=== PATIENT | female | born 1995 | race Caucasian/White ===

== ENCOUNTER 2021-06-07 09:17 | Outpatient (RCR) | payer OTHER, SELFPAY ==
[2021-05-03 12:05] VITALS: BP 128/68; PULSE 94
--- NOTE | 2021-05-03 12:59 | PC.NURSE ---
1245- BP 01/30
[2021-05-06 12:30] VITALS: BP 127/62
[2021-05-10 11:02] VITALS: BP 123/69; PULSE 96
--- NOTE | 2021-05-10 11:26 | PC.NURSE ---
BPP 01/30
[2021-05-11 20:06] VITALS: BP 126/70; PULSE 91
[2021-05-13 11:33] VITALS: BP 133/72; PULSE 99
[2021-05-17 11:07] VITALS: BP 133/76; PULSE 99
[2021-05-20 10:36] VITALS: BP 129/73; PULSE 109
[2021-05-24 11:07] VITALS: BP 129/63; PULSE 102
[2021-05-27 12:53] VITALS: BP 129/74; PULSE 102
[2021-05-31 11:23] VITALS: BP 132/66; PULSE 96
[2021-06-03 11:08] VITALS: BP 136/74; PULSE 92
[2021-06-04 20:47] VITALS: BP 134/73; PULSE 92
--- NOTE | ~2021-06-07 | US_ITS ---
EXAMINATION: US OB BPP wo non-stress DATE: 05/03/2021 12:44 INDICATION: Gestational diabetes during third trimester TECHNIQUE: Real-time pelvic ultrasound was performed. The interpreting radiologist was not present fo r the study. COMPARISON: None. FINDINGS: There is a single living fetus in vertex presentation. The placenta is anterior. heart rate is 135 beats per minute (bpm). Biophysical profile performed by the technologist: breathing (30 sec sustained breathing in 30 minutes): 2 out of 2 movement (3 gross body movements in 30 minutes): 2 out of 2 tone (one episode of kyygyxw-hmnfdatgv-afyureq limb movement): 2 out of 2 Amniotic fluid pocket (2 cm): 2 out of 2 Total score: 8 out of 8 IMPRESSION: 1. Single living fetus in vertex presentation. 2. Biophysical profile 8 out of 8. Reviewed, dictated and finalized at location B. OR SOLUTIONS ENGINEER
--- NOTE | ~2021-06-07 | US_ITS ---
EXAMINATION: US OB BPP wo non-stress DATE: 06/07/2021 10:55 INDICATION: Gestational diabetes. TECHNIQUE: Real-time pelvic ultrasound was performed. COMPARISON: Ultrasound 05/31/2021 FINDINGS: There is a single living fetus in vertex presentation. The placenta is anterior and fundal. he art rate is 159 beats per minute (bpm). Biophysical profile performed by the technologist: breathing (30 sec sustained breathing in 30 minutes): 2 out of 2 movement (3 gross body movements in 30 minutes): 2 out of 2 tone (one episode of xafrjzh-ojrqhbxhl-pykdgmh limb movement): 2 out of 2 Amniotic fluid pocket (2 cm): 2 out of 2 Total score: 8 out of 8 IMPRESSION: 1. Single living fetus in vertex presentation. 2. Biophysical profile 8 out of 8. Reviewed, dictated and finalized at location A. T CREASER
--- NOTE | ~2021-06-07 | US_ITS ---
EXAMINATION: US OB BPP wo non-stress DATE: 05/24/2021 11:08 OR ASSISTANT INDICATION: Gestational diabetes TECHNIQUE: Real-time transabdominal obstetric ultrasound. FINDINGS: 05/17/2021 There is a single living fetus in vertex presentation. The placenta is anterior without placenta pre via. cardiac activity and movement is noted with a heart rate of 148 beats per minute. Biophysical profile: breathin of 2 movement: 2 of 2 tone: 2 of 2 Amniotic flud pocket: 2 of 2 Total score: 8 of 8 IMPRESSION: 1. Single living intrauterine in vertex presentation. 2: Total biophysical profile score of 8/8. Reviewed, dictated and finalized at location B. ASSISTANT
--- NOTE | ~2021-06-07 | US_ITS ---
US OB BPP wo non-stress DATE: 05/13/2021 11:31 INDICATION: Gestational diabetes mellitus TECHNIQUE: Real-time imaging and Doppler analysis COMPARISON: None FINDINGS: Live lopez intrauterine gestation, fetus in longitudinal lie, vertex presentation, with heart rate of 146 bpm. Anterior placenta. Normal amount of amniotic fluid by subjective assessment. A 4 x 5.3 cm amniotic fl uid pocket is demonstrated. BIOPHYSICAL PROFILE reported by software validation technician: breathin out of 2 movement: 2 out of 2 tone: 2 out of 2 Amniotic fluid pocket: 2 out of 2 Total score: 8 out of 8 IMPRESSION: Normal biophysical profile score of 8 out of 8 Reviewed, dictated and finalized at Location A. Reviewed, dictated and finalized at location A. ARY ASSISTANT
--- NOTE | ~2021-06-07 | US_ITS ---
EXAMINATION: US OB BPP wo non-stress DATE: 05/31/2021 11:21 INDICATION: Maternal gestational diabetes during third trimester of . TECHNIQUE: Real-time pelvic ultrasound was performed. The interpreting radiologist was not present fo r the study. COMPARISON: 05/24/2021 FINDINGS: There is a single living fetus in vertex presentation. The placenta is anterior. heart rate is 165 beats per minute (bpm). Amniotic fluid volume is subjectively normal. Biophysical profile performed by the technologist: breathing (30 sec sustained breathing in 30 minutes): 2 out of 2 movement (3 gross body movements in 30 minutes): 2 out of 2 tone (one episode of nbjnzvn-etjfwkirh-unuyupq limb movement): 2 out of 2 Amniotic fluid pocket (2 cm): 2 out of 2 Total score: 8 out of 8 IMPRESSION: 1. Single living fetus in vertex presentation with heart rate of 165 bpm. 2. Biophysical profile 8 out of 8. Reviewed, dictated and finalized at location B. ICAL SERVICES TECH
--- NOTE | ~2021-06-07 | US_ITS ---
EXAMINATION: US OB BPP wo non-stress DATE: 05/10/2021 11:21 INDICATION: Gestational diabetes. Third trimester. TECHNIQUE: Real-time pelvic ultrasound was performed. COMPARISON: Ultrasound 05/03/2021 FINDINGS: There is a single living fetus in vertex presentation. The placenta is anterior. heart rate is 153 beats per minute (bpm). Biophysical profile performed by the technologist: breathing (30 sec sustained breathing in 30 minutes): 2 out of 2 movement (3 gross body movements in 30 minutes): 2 out of 2 tone (one episode of cjpgjgh-vkmcqjthj-djkyzop limb movement): 2 out of 2 Amniotic fluid pocket (2 cm): 2 out of 2 Total score: 8 out of 8 IMPRESSION: 1. Single living fetus in vertex presentation. 2. Biophysical profile 8 out of 8. Reviewed, dictated and finalized at location A. LING SUPERVISOR
--- NOTE | ~2021-06-07 | US_ITS ---
EXAMINATION: US OB BPP wo non-stress EXAM DATE: 05/17/2021 11:29 INDICATION: Gestational diabetes. 3rd trimester. TECHNIQUE: Pelvic obstetrical transabdominal sonogram was performed by a technologist. There are mu ltiple grayscale and Doppler images available for interpretation. Comparison is made to prior examina tion from 05/13/2021. FINDINGS: There is a single fetus identified in vertex presentation with a heart rate of 157 beats pe r minute. The placenta is located in the anterior position. There is no sonographic evidence of retr oplacental hemorrhage identified. BIOPHYSICAL PROFILE (performed by the technologist) breathing (30 sec sustained breathing in 30 minutes): 2 out of 2 movement (3 gross body movements in 30 minutes): 2 out of 2 tone (one episode of zkkiimg-cwbdnxggb-twticsc limb movement): 2 out of 2 Amniotic fluid pocket (2 cm): 2 out of 2 Total score: 8 out of 8 IMPRESSION: 1. Single fetus with heart rate of 157 bpm. 2. Normal biophysical profile score of 8 out of 8. Reviewed, dictated and finalized at location A. WAY PATROL OFFICER
[2021-06-07 11:03] VITALS: BP 127/77; PULSE 92
== END 2021-06-23 13:49 | disposition home or self-care (01) ==
LOC: ANHOBOP 09:17
PROVIDERS: PCP Internal Medicine; Visit Provider Obstetrics & Gynecology
DX: O24.419 Gestational diabetes mellitus in pregnancy, unspecified control (principal); Z3A.33 33 weeks gestation of pregnancy; Z3A.34 34 weeks gestation of pregnancy; Z3A.35 35 weeks gestation of pregnancy; Z3A.36 36 weeks gestation of pregnancy; O36.8130 Decreased fetal movements, third trimester, not applicable or unspecified; Z3A.37 37 weeks gestation of pregnancy; Z3A.38 38 weeks gestation of pregnancy
CPT/HCPCS: 59025; 76819

== ENCOUNTER 2021-06-09 23:19 | Inpatient (IN) | payer OTHER, SELFPAY ==
--- NOTE | 2021-06-09 23:19 | LDADM ---
This patient, Татьяна Espinoza, was admitted to Labor/Delivery/Recovery 104 on 06/09/21 at 23:19. Plans for labor, pain management and were discussed with patient. Patient/family oriented to hospital policies and general routines including ID bracelet, bed and alarms, visiting hours, pain management, procedures, bathroom and other care routines, personal items, smoking policy, room service/diet and guest tray routines, security routines, and visiting hours. Patient/Family are encouraged to report perceived risks to care and to ask questions if they do not understand what they are told or what they should do. See OBIX for further documentation.
[2021-06-10] VITALS (218 sets, daily range): BP systolic 110–172; BP diastolic 51–99; PULSE 70–138; RESP 13–20; TEMP 36.8–38.4; O2SAT 96–100; BMI 40.0
[2021-06-10 00:36] LABS: Glucose Point of Care 114 mg/dl (65-105)
[2021-06-10 01:40] LABS: Basophils Percent Auto 0.3 % (0.2-1.2); Eosinophils Absolute Auto 0.1 K/mm3 (0-0.3); Eosinophils Percent Auto 0.7 % (0-4.4); Hematocrit 36.7 % (37.0-47.0); Hemoglobin 12.2 g/dL (12.0-15.0); Immature Granulocyte Absolute 0.07 K/mm3 (0.00-0.031); Immature Granulocyte Percent A 0.8 % (0-0.5); Lymphocytes Percent Auto 16.8 % (18.3-44.2); Mean Corpuscular HGB Conc 33.2 g/dl (32-36); Mean Corpuscular Hemoglobin 30.7 pg (26-34); Mean Corpuscular Volume 92.4 fl (80-100); Mean Platelet Volume 9.6 fl (7.4-10.4); Monocytes Absolute Auto 0.5 K/mm3 (0.1-0.6); Monocytes Percent Auto 5.8 % (2.6-8.5); Neutrophils Absolute Auto 6.7 K/mm3 (1.3-6.7); Neutrophils Percent Auto 75.6 % (45.5-73.1); Platelet Count Result 198 k/mm3 (150-375); Red Blood Count 3.97 M/mm3 (4.2-5.4); Red Cell Distribution Width 15.1 % (11.5-14.5); White Blood Count 8.9 K/mm3 (4.5-10.0)
[2021-06-10] MEDS: LACTATED RINGERS 1,000 ML 125 ML IV CONT ×4 (03:30→16:38)
[2021-06-10] MEDS: OXYTOCIN 30 UNITS/NS 500 ML 30 UNITS/500 ML BAG IV CONT (03:31)
[2021-06-10 03:44] LABS: Glucose Point of Care 105 mg/dl (65-105)
--- NOTE | 2021-06-10 06:04 | WPDANESEPP ---
Anes - Eval Pre Procedure Procedure: labor pain management Date/Time: 06/10/21 06:04 Surgeon: Melinda Preop Diagnosis: Pain during labor Pre Op Diagnosis: Leaking Patient Data Age: 26 Gender: F Height: 1.52 m Weight: 93 kg Last Vital Signs Temp 98.9 F 06/10/21 03:30 Pulse 100 06/10/21 03:42 BP 136/67 06/10/21 03:42 Allergies Allergy/AdvReac Type Severity Reaction Status Date / Time adhesive AdvReac Unknown Unknown Verified 05/20/21 10:51 Home Medications Medication Instructions Recorded Confirmed Type PNV cmb#95-ferrous fumarate-FA 1 tablet PO DAILY 05/20/21 06/10/21 History [] ferrous sulfate 325 mg PO DAILY 05/20/21 06/10/21 History glyburide 5 mg PO DAILY 05/20/21 06/10/21 History Laboratory Tests 06/10/21 06/10/21 06/10/21 00:29 00:32 00:32 WBC 8.9 K/mm3 K/mm3 (4.5-10.0) RBC 3.97 M/mm3 L M/mm3 (4.2-5.4) Hgb 12.2 g/dL g/dL (12.0-15.0) Hct 36.7 % L % (37.0-47.0) MCV 92.4 fl fl (80-100) MCH 30.7 pg pg (26-34) MCHC 33.2 g/dl g/dl (32-36) RDW 15.1 % H % (11.5-14.5) Plt Count 198 k/mm3 k/mm3 (150-375) MPV 9.6 fl fl (7.4-10.4) Immature Gran % (Auto) 0.8 % H % (0-0.5) Neut % (Auto) 75.6 % H % (45.5-73.1) Lymph % (Auto) 16.8 % L % (18.3-44.2) [place] % (Auto) 5.8 % % (2.6-8.5) Eos % (Auto) 0.7 % % (0-4.4) Baso % (Auto) 0.3 % % (0.2-1.2) Lymph # (Auto) 1.50 K/mm3 K/mm3 (0.9-3.2) [place] # (Auto) 0.5 K/mm3 K/mm3 (0.1-0.6) Eos # (Auto) 0.1 K/mm3 K/mm3 (0-0.3) Baso # (Auto) 0.0 K/mm3 K/mm3 (0.0-0.1) Abs Immat Gran (auto) 0.07 K/mm3 H K/mm3 (0.00-0.031) Absolute Neuts (auto) 6.7 K/mm3 K/mm3 (1.3-6.7) Absolute Nucleated RBC 0.0 K/mm3 K/mm3 (0.0-0.012) Nucleated RBC % 0.0 % % (0.0-0.2) POC Capillary Glucose 114 mg/dl H mg/dl (65-105) RPR Pending Blood Type Antibody Screen 06/10/21 06/10/21 00:32 03:40 WBC RBC Hgb Hct MCV MCH MCHC RDW Plt Count MPV Immature Gran % (Auto) Neut % (Auto) Lymph % (Auto) [place] % (Auto) Eos % (Auto) Baso % (Auto) Lymph # (Auto) [place] # (Auto) Eos # (Auto) Baso # (Auto) Abs Immat Gran (auto) Absolute Neuts (auto) Absolute Nucleated RBC Nucleated RBC % POC Capillary Glucose 105 mg/dl mg/dl (65-105) RPR Blood Type A Positive Antibody Screen Negative : gestational age (edc 06/21) Patient hx anesthesia problems: none Family hx anesthesia problems: none Results Review: All pre-operative results and documents have been reviewed as part of the pre-operative evaluation. [facility] Past Medical History Medical History (Updated 06/10/21 @ 06:04 by Karen Scales CRNA) Morbid obesity with BMI of 40.0-44.9, adult Family History Family History Father Marcos's disease Heart disease Mother Diabetes mellitus Social History Social History Smoking status: Never smoker Substance use: never Spiritual care concerns: No Exam Day of Procedure 06/10/21 06:04 Patient weight: morbidly obese Neurological: alert and oriented
[2021-06-10 07:35] LABS: Glucose Point of Care 123 mg/dl (65-105)
[2021-06-10 08:26] LABS: Alanine Aminotransferase 23 U/L (4-35); Albumin Level 3.2 g/dL (3.5-5.1); Alkaline Phosphatase 108 U/L (38-126); Anion Gap 9 mmol/L (8-16); Aspartate Amino Transferase 25 U/L (14-36); Bilirubin,Total 0.2 mg/dL (0.2-1.3); Blood Urea Nitrogen 15 mg/dL (7-17); Calcium 8.6 mg/dL (8.4-10.2); Carbon Dioxide 17 mmol/L (22-30); Chloride 111 mmol/L (98-107); Estimated CRCL calculation 105 ml/min; Estimated Glomerular Filt Rate > 60; Glucose 112 mg/dL (65-110); Potassium 3.7 mmol/L (3.4-5.0); Sodium 137 mmol/L (137-145); Uric Acid 6.4 mg/dL (2.5-7.5)
[2021-06-10 10:37] LABS: Glucose Point of Care 83 mg/dl (65-105)
[2021-06-10 12:46] LABS: Glucose Point of Care 84 mg/dl (65-105)
[2021-06-10 13:14] LABS: Rapid Plasma Reagin Non-Reactive (NonReactive)
[2021-06-10 14:22] LABS: Glucose Point of Care 70 mg/dl (65-105)
[2021-06-10] MEDS: AMPICILLIN 2 GM/NS 100 ML 2 GM/100 ML BAG IVPB (14:44)
[2021-06-10 16:24] LABS: Glucose Point of Care 79 mg/dl (65-105)
--- NOTE | 2021-06-10 16:42 | PM.IMHP ---
H&P: HPI History of Present Illness Date/Time: 06/10/21 16:42 18-year-old 1 female presents 39 weeks with ruptured membranes and early labor. She has been laboring throughout the day with minimal change house attendant the last 3-4 hours going from 9cm to a REM with great amount of CABG caput as well. She has had intermittent decelerations but overall the strip has been reassuring. With her minimal change house attendant this period of time and discussed the patient and her and they understand and agree to proceed with primary delivery. Chief Complaint: Review of Systems Review of Systems: All systems reviewed & are unremarkable except as noted in HPI and below PMFSH Past Medical History Medical History Morbid obesity with BMI of 40.0-44.9, adult Family History Family History Father Marcos's disease Heart disease Mother Diabetes mellitus Social History Social History Smoking status: Never smoker Substance use: never Spiritual care concerns: No Meds Home Medications and Allergies Home Medications Medication Instructions Recorded Confirmed Type PNV cmb#95-ferrous fumarate-FA 1 tablet PO DAILY 05/20/21 06/10/21 History [] ferrous sulfate 325 mg PO DAILY 05/20/21 06/10/21 History glyburide 5 mg PO DAILY 05/20/21 06/10/21 History Allergies Allergy/AdvReac Type Severity Reaction Status Date / Time adhesive AdvReac Unknown Unknown Verified 05/20/21 10:51 Vital Signs Vital Signs - 24 hr 06/10/21 00:48 06/10/21 03:30 06/10/21 03:42 Temperature 37.2 C Pulse Rate 95 100 Respiratory Rate Blood Pressure 138/80 136/67 Pulse Oximetry 06/10/21 06:27 06/10/21 06:30 06/10/21 06:45 Temperature 37.1 C Pulse Rate 93 93 88 Respiratory Rate 18 Blood Pressure 153/88 H 151/76 H 145/73 H Pulse Oximetry 06/10/21 06:50 06/10/21 06:51 06/10/21 06:52 Temperature Pulse Rate 114 H 104 H Respiratory Rate Blood Pressure 150/85 H 150/89 H Pulse Oximetry 98 06/10/21 06:53 06/10/21 06:54 06/10/21 06:56 Temperature Pulse Rate 109 H 106 H 99 Respiratory Rate Blood Pressure 149/86 H 133/81 151/69 H Pulse Oximetry 06/10/21 06:57 06/10/21 06:58 06/10/21 07:00 Temperature Pulse Rate 98 99 Respiratory Rate Blood Pressure 151/73 H 145/71 H Pulse Oximetry 98 06/10/21 07:02 06/10/21 07:06 06/10/21 07:07 Temperature Pulse Rate 96 Respiratory Rate Blood Pressure 144/62 H Pulse Oximetry 97 98 06/10/21 07:11 06/10/21 07:12 06/10/21 07:16 Temperature Pulse Rate 97 101 H Respiratory Rate Blood Pressure 156/70 H 163/76 H Pulse Oximetry 97 06/10/21 07:17 06/10/21 07:22 06/10/21 07:27 Temperature Pulse Rate Respiratory Rate Blood Pressure Pulse Oximetry 98 99 99 06/10/21 07:31 06/10/21 07:32 06/10/21 07:37 Temperature Pulse Rate 99 Respiratory Rate Blood Pressure 165/78 H Pulse Oximetry 98 99 06/10/21 07:42 06/10/21 07:46 06/10/21 07:47 Temperature Pulse Rate 94 Respiratory Rate Blood Pressure 172/59 H Pulse Oximetry 99 99 06/10/21 07:52 06/10/21 07:57 06/10/21 08:01 Temperature Pulse Rate 92 Respiratory Rate Blood Pressure 138/72 Pulse Oximetry 100 99 06/10/21 08:02 06/10/21 08:07 06/10/21 08:12 Temperature 36.8 C Pulse Rate Respiratory Rate 18 Blood Pressure Pulse Oximetry 99 98 99 06/10/21 08:16 06/10/21 08:17 06/10/21 08:22 Temperature Pulse Rate 90 Respiratory Rate Blood Pressure 130/73 Pulse Oximetry 99 98 06/10/21 08:27 06/10/21 08:30 06/10/21 08:32 Temperature Pulse Rate 91 Respiratory Rate Blood Pressure 147/82 H Pulse Oximetry 99 99 06/10/21 08:37 06/10/21 08:42 06/10/21 08:46 T
--- NOTE | 2021-06-10 16:46 | WPDHPUPDATE1 ---
History and Physical Update Update Date/Time: 06/10/21 16:46 History and Physical has been reviewed, including an updated exam of the patient. There are NO changes in the patient's condition. Risks, benefits, and alternatives have been discussed and questions answered. Patient agrees to proceed with procedure.
[2021-06-10] MEDS: ceFAZolin 2 GM/D5W 50 ML 2 GM/50 ML BAG IVPB (16:51)
[2021-06-10] MEDS: KETOROLAC 30 MG/ML VIAL (*BKC) IV PUSH (17:42)
--- NOTE | 2021-06-10 17:47 | PM.OBPRVD ---
OB - Delivery Note Procedure Procedure: Procedures Operation Date: 06/10/21 16:45 <No data on this case meets the specified criteria> events: Gestational Diabetes and Prolonged Rupture of Membrane Intrapartal events: Failure to Progress in Labor Route of delivery: Specimen: Yes Quantitative Blood Loss (ml): 865 Anesthesia type: Epidural Disposition: floor Narrative: Patient prepped and draped in usual manner for this procedure. Pfannenstiel incision was made which was then carried down to the fascia which was extended bilaterally the length of the skin incision. Superiorly and inferiorly dissected away from the rectus muscles and then the peritoneum was readily entered and bladder flap developed. Uterus was scored in a low transverse manner and vertex was delivered without difficulty the rest of baby was delivered without difficulty as well. Cord clamped cut passed off to the pediatric team in attendance and the placenta was removed manually uterus was exteriorized cleared of membranes and clots and closed using 0 Monocryl running interlocking manner with good approximation hemostasis noted 1 area of oozing was readily rendered hemostatic with a uyhhvo-lv-oalfk suture. Uterus returned the abdomen inspected again all subfascial tissue was noted be hemostatic and the uterine incision was hemostatic and intact. Fascia was approximated using 0 Vicryl from the left angle to the midline in the right angle to midline with showed good approximation. Subcutaneous tissue was approximated with 0 plain suture and skin were bartolo were used to approach approximate the skin edges. At this point the procedure was considered terminated and the immediate postoperative condition of mother and baby were both excellent. Baby Weeks of gestation at delivery: 39 gender: Female Weight (pounds): 9 Weight (ounces): 5 score one minute: 8 score five minutes: 9
--- NOTE | 2021-06-10 17:55 | SUR.PHASEI ---
450 ml remains in IV of 1000 LR with 20 units Pitocin.
--- NOTE | 2021-06-10 19:25 | SUR.PHASEI ---
Ice pack applied to swollen labia
--- NOTE | 2021-06-10 19:55 | SUR.PHASEI ---
Dr. Lawrence returned page and informed of fever of 101.2,. Orders received.
--- NOTE | 2021-06-10 20:05 | SUR.PHASEI ---
Pt, infant, and father of baby taken to room 110 so family members can view prior to transfer to mom/baby unit.
[2021-06-10] MEDS: OXYTOCIN 30 UNITS/NS 500 ML 30 UNITS/500 ML BAG 125 UNITS IV CONT (20:16)
[2021-06-10] MEDS: CLINDAMYCIN 900 MG/D5W 50 ML 900 MG/50 ML PIGGYBACK 50 MG IVPB (20:46)
[2021-06-10 20:47] LABS: Glucose Point of Care 86 mg/dl (65-105)
[2021-06-10 20:48] LABS: Hematocrit 32.1 % (37.0-47.0); Hemoglobin 10.6 g/dL (12.0-15.0); Mean Corpuscular Hemoglobin 30.5 pg (26-34); Mean Corpuscular Volume 92.2 fl (80-100); Mean Platelet Volume 9.3 fl (7.4-10.4); Platelet Count Result 185 k/mm3 (150-375); Red Blood Count 3.48 M/mm3 (4.2-5.4); Red Cell Distribution Width 15.1 % (11.5-14.5); White Blood Count 15.3 K/mm3 (4.5-10.0)
[2021-06-11] MEDS: DEXTROSE 5%/0.45% SOD CHL 1,000 ML 125 ML IV CONT (02:35)
[2021-06-11 03:15] VITALS: BP 114/74; PULSE 100; RESP 16; TEMP 36.9
[2021-06-11 03:15] LABS: Basophils Absolute Auto 0.1 K/mm3 (0.0-0.1); Basophils Percent Auto 0.4 % (0.2-1.2); Eosinophils Percent Auto 0.3 % (0-4.4); Hematocrit 33.3 % (37.0-47.0); Hemoglobin 10.7 g/dL (12.0-15.0); Immature Granulocyte Absolute 0.06 K/mm3 (0.00-0.031); Immature Granulocyte Percent A 0.5 % (0-0.5); Lymphocytes Absolute Auto 1.19 K/mm3 (0.9-3.2); Lymphocytes Percent Auto 9.7 % (18.3-44.2); Mean Corpuscular HGB Conc 32.1 g/dl (32-36); Mean Corpuscular Hemoglobin 30.7 pg (26-34); Mean Corpuscular Volume 95.4 fl (80-100); Mean Platelet Volume 9.5 fl (7.4-10.4); Monocytes Absolute Auto 0.6 K/mm3 (0.1-0.6); Monocytes Percent Auto 4.8 % (2.6-8.5); Neutrophils Absolute Auto 10.4 K/mm3 (1.3-6.7); Neutrophils Percent Auto 84.3 % (45.5-73.1); Platelet Count Result 167 k/mm3 (150-375); Red Blood Count 3.49 M/mm3 (4.2-5.4); Red Cell Distribution Width 15.5 % (11.5-14.5); White Blood Count 12.3 K/mm3 (4.5-10.0)
[2021-06-11] MEDS: CLINDAMYCIN 900 MG/D5W 50 ML 900 MG/50 ML PIGGYBACK 50 MG IVPB ×3 (04:56→19:59)
[2021-06-11 08:46] VITALS: BP 117/68; PULSE 106; RESP 16; TEMP 36.1; O2SAT 98
[2021-06-11] MEDS: DOCUSATE SODIUM 100 MG CAPSULE PO ×2 (08:46→17:14)
--- NOTE | 2021-06-11 09:14 | PM.OBPNVD ---
OB - PN: Subj Subjective Date/time seen: 06/11/21 09:14 Diet/ambulation without difficulty. Pain well controlled. OB - PN: Obj Data Labs CBC & Chem 7: 06/11/21 03:10 06/10/21 08:00 Labs: Laboratory Results - last 24 hr 06/10/21 06/10/21 06/10/21 00:32 10:34 12:43 WBC RBC Hgb Hct MCV MCH MCHC RDW Plt Count MPV Immature Gran % (Auto) Neut % (Auto) Lymph % (Auto) [place] % (Auto) Eos % (Auto) Baso % (Auto) Lymph # (Auto) [place] # (Auto) Eos # (Auto) Baso # (Auto) Abs Immat Gran (auto) Absolute Neuts (auto) Absolute Nucleated RBC Nucleated RBC % POC Capillary Glucose 83 84 RPR Non-reactive 06/10/21 06/10/21 06/10/21 14:20 16:16 20:43 WBC RBC Hgb Hct MCV MCH MCHC RDW Plt Count MPV Immature Gran % (Auto) Neut % (Auto) Lymph % (Auto) [place] % (Auto) Eos % (Auto) Baso % (Auto) Lymph # (Auto) [place] # (Auto) Eos # (Auto) Baso # (Auto) Abs Immat Gran (auto) Absolute Neuts (auto) Absolute Nucleated RBC Nucleated RBC % POC Capillary Glucose 70 79 86 RPR 06/10/21 06/11/21 20:44 03:10 WBC 15.3 H 12.3 H RBC 3.48 L 3.49 L Hgb 10.6 L 10.7 L Hct 32.1 L 33.3 L MCV 92.2 95.4 MCH 30.5 30.7 MCHC 33.0 32.1 RDW 15.1 H 15.5 H Plt Count 185 167 MPV 9.3 9.5 Immature Gran % (Auto) 0.5 Neut % (Auto) 84.3 H Lymph % (Auto) 9.7 L [place] % (Auto) 4.8 Eos % (Auto) 0.3 Baso % (Auto) 0.4 Lymph # (Auto) 1.19 [place] # (Auto) 0.6 Eos # (Auto) 0.0 Baso # (Auto) 0.1 Abs Immat Gran (auto) 0.06 H Absolute Neuts (auto) 10.4 H Absolute Nucleated RBC 0.0 Nucleated RBC % 0.0 POC Capillary Glucose RPR OB - PN A/P Assessment and Plan (1) Arrest of dilation, delivered, current hospitalization: Code(s): O62.1 - Secondary uterine inertia Status: Acute Assessment and Plan: 1. Clinically doing well. Will continue ab until am and recheck CBC. Otherwise routine pp/po care. Time Spent With Patient Time: Total time spent is greater than 50% in coordination of care (as documented) at patient's floor/unit and/or counseling patient: Exam Const: General: cooperative and healthy appearing GI: GI Palp: Yes abdominal tenderness Auscultation: normal bowel sounds
--- NOTE | 2021-06-11 09:39 | WPDANLDPN2 ---
Anes-Prog Note L&D Date/Time: 06/11/21 09:39 Comfortable throughout: labor and section Neuraxial method: epidural Epidural/Spinal procedure site: clean & non-tender Neuro status: Neuro function grossly intact. Cardiovascular status: normal Respiratory status: normal Airway patency: baseline Mental status: baseline Post-Op hydration status: normal Vital Signs: Last Vital Signs Temp 97.0 F L 06/11/21 08:46 Pulse 106 H 06/11/21 08:46 Resp 16 06/11/21 08:46 BP 117/68 06/11/21 08:46 Pulse Ox 98 06/11/21 08:46 Pain score (VAS): 2 I/O: Intake & Output 06/10/21 06/11/21 06/11/21 23:59 07:59 15:59 Intake Total 7795.949 9989.375 1050 Output Total 405 600 650 Balance 917.375 452.375 400 Post-procedural complaints: none Patient feedback: Patient satisfied with anesthetic care.
--- NOTE | 2021-06-11 09:40 | WPDANLDNPN2 ---
Anes-Prog Note L&D-Neuraxial Date/Time: 06/11/21 09:40 Neuraxial medications: epidural PF morphine Opiod-related complaints: none Patient feedback: Patient satisfied with post-operative pain management.
[2021-06-11] MEDS: IBUPROFEN SUSPENSION 200 MG/10 ML UDC 600 MG PO ×2 (10:45→17:15)
[2021-06-11 12:10] VITALS: BP 113/67; PULSE 105; RESP 16; TEMP 36.1; O2SAT 99
[2021-06-11 16:00] VITALS: BP 136/81; PULSE 87; RESP 18; TEMP 36.4; O2SAT 98
[2021-06-11 18:40] VITALS: BP 125/77; PULSE 113; RESP 16; TEMP 36.6
[2021-06-11 21:22] LABS: Gentamicin Trough 1.5 ug/mL (<1.0)
[2021-06-12 00:50] LABS: Gentamicin Peak 3.4 ug/mL (5.0-12.0)
[2021-06-12] MEDS: CLINDAMYCIN 900 MG/D5W 50 ML 900 MG/50 ML PIGGYBACK 50 MG IVPB (04:06)
[2021-06-12] MEDS: IBUPROFEN SUSPENSION 200 MG/10 ML UDC 600 MG PO ×3 (04:20→20:57)
[2021-06-12 04:55] LABS: Hematocrit 29.9 % (37.0-47.0); Hemoglobin 9.7 g/dL (12.0-15.0); Mean Corpuscular HGB Conc 32.4 g/dl (32-36); Mean Corpuscular Hemoglobin 30.2 pg (26-34); Mean Corpuscular Volume 93.1 fl (80-100); Mean Platelet Volume 9.4 fl (7.4-10.4); Platelet Count Result 175 k/mm3 (150-375); Red Blood Count 3.21 M/mm3 (4.2-5.4); Red Cell Distribution Width 15.3 % (11.5-14.5); White Blood Count 10.1 K/mm3 (4.5-10.0)
[2021-06-12 08:00] VITALS: BP 145/91; PULSE 107; RESP 16; TEMP 36.8; O2SAT 98
[2021-06-12] MEDS: DOCUSATE SODIUM 100 MG CAPSULE PO (09:31)
[2021-06-12] MEDS: POLYSACCHARIDE IRON COMPLEX 150 MG CAPSULE PO (09:31)
--- NOTE | 2021-06-12 10:02 | PM.OBDSVD ---
DS: Admitting Diagnosis Discharge Date 06/13/2021 Admitting Diagnosis DS: Discharge Diagnosis Discharge Diagnosis (1) Arrest of dilation, delivered, current hospitalization: Code(s): O62.1 - Secondary uterine inertia Status: Acute OB - DS: Summary OB Procedures : None OB Procedures Intrapartum: OB Procedures: : Antibiotics Peripartum Data Procedures: Procedures Operation Date: 06/10/21 16:45 Actual Procedure Side Surgeon p Section Ambrocio Lawrence MD Time Spent with Patient Time attestation: Total time spent providing and/or coordinating discharge services: DS: Data Data Completed and Pending Pending studies at discharge: Pending at discharge 06/10/21 17:18 Surgical [PTH] Routine Labs on day of discharge: Labs from last 24 hours 06/12/21 06/11/21 06/11/21 04:15 23:43 19:55 WBC 10.1 H RBC 3.21 L Hgb 9.7 L Hct 29.9 L MCV 93.1 MCH 30.2 MCHC 32.4 RDW 15.3 H Plt Count 175 MPV 9.4 Gentamicin Peak 3.4 L Gentamicin Trough 1.5 Discharge Plan Discharge Discharging Clinician: Ambrocio Lawrence Patient Disposition: Home, Self-Care Activity: as tolerated Diet: as tolerated Wound Care Instructions: incision open to air Discharge Instructions: office sunday for staple removal Patient Instructions: Antibiotic Form Stand Alone Forms: General Discharge Information Follow-up/Referrals: Ambrocio Lawrence MD [Physician] - 3 Weeks Discharge Medications: New hydrocodone-acetaminophen 7.5-325 mg/15 mL Solution 5 mg PO Q3H PRN (Reason: Moderate Pain (4-6)) 7 Days RF: 0 ibuprofen 100 mg/5 mL Suspension 600 mg PO Q6H PRN (Reason: Cramping) 7 Days RF: 0 Continued ferrous sulfate 325 mg (65 mg iron) Tablet 325 mg PO DAILY RF: 0 PNV cmb#95-ferrous fumarate-FA [] 28 mg iron- 800 mcg Tablet 1 tablet PO DAILY RF: 0 Discontinued glyburide 5 mg Tablet 5 mg PO DAILY RF: 0 Date of admission: 06/09/21 23:19 Primary Care Provider: JeaneJoel Admitting Provider: Ambrocio Lawrence Attending physician on admission: Ambrocio Lawrence Condition: Stable
--- NOTE | 2021-06-12 10:07 | PM.OBDSVD ---
DS: Admitting Diagnosis Discharge Date 06/13/2021 Admitting Diagnosis OB - DS: Summary OB Procedures : None OB Procedures Intrapartum: OB Procedures: : Antibiotics Peripartum Data Procedures: Procedures Operation Date: 06/10/21 16:45 Actual Procedure Side Surgeon p Section Ambrocio Lawrence MD Time Spent with Patient Time attestation: Total time spent providing and/or coordinating discharge services: DS: Data Data Completed and Pending Pending studies at discharge: Pending at discharge 06/10/21 17:18 Surgical [PTH] Routine Labs on day of discharge: Labs from last 24 hours 06/12/21 06/11/21 06/11/21 04:15 23:43 19:55 WBC 10.1 H RBC 3.21 L Hgb 9.7 L Hct 29.9 L MCV 93.1 MCH 30.2 MCHC 32.4 RDW 15.3 H Plt Count 175 MPV 9.4 Gentamicin Peak 3.4 L Gentamicin Trough 1.5 Discharge Plan Discharge Discharging Clinician: Ambrocio Lawrence Patient Disposition: Home, Self-Care Activity: as tolerated Diet: as tolerated Wound Care Instructions: incision open to air Discharge Instructions: office sunday for staple removal Patient Instructions: Antibiotic Form Stand Alone Forms: General Discharge Information Follow-up/Referrals: Ambrocio Lawrence MD [Physician] - 3 Weeks Discharge Medications: New ibuprofen 100 mg/5 mL Suspension 600 mg PO Q6H PRN (Reason: Cramping) Qty: 840 RF: 0 Continued ferrous sulfate 325 mg (65 mg iron) Tablet 325 mg PO DAILY RF: 0 PNV cmb#95-ferrous fumarate-FA [] 28 mg iron- 800 mcg Tablet 1 tablet PO DAILY RF: 0 Discontinued glyburide 5 mg Tablet 5 mg PO DAILY RF: 0 Date of admission: 06/09/21 23:19 Primary Care Provider: Jeane,Joel Dey Admitting Provider: Ambrocio Lawrence Attending physician on admission: Ambrocio Lawrence Condition: Stable
[2021-06-12] MEDS: Acetaminophen/HYDROcodone ELIXIR (*CRX) 7.5 MG/15 ML UDC 5 MG PO ×2 (15:56→20:56)
[2021-06-12 18:35] VITALS: BP 126/71; PULSE 100; RESP 18; TEMP 36.9
[2021-06-12] MEDS: SIMETHICONE 80 MG TAB.CHEW PO (20:56)
[2021-06-13] MEDS: IBUPROFEN SUSPENSION 200 MG/10 ML UDC 600 MG PO ×2 (06:40→15:45)
[2021-06-13] MEDS: Acetaminophen/HYDROcodone ELIXIR (*CRX) 7.5 MG/15 ML UDC 5 MG PO ×2 (06:40→15:43)
[2021-06-13 07:55] VITALS: BP 143/89; PULSE 110; RESP 18; TEMP 36.6; O2SAT 99
--- NOTE | 2021-06-13 08:00 | PC.NURSE ---
Consult with pt., mother reports she has attempting to breast for several feedings with difficulties latching and keeping awake at breast. Mother has decided to pump and bottle feed. Reviewed breast pump care and usage, pumping schedule, nipple care, and collection and storage of breast milk. Encouraged [id number], breast massage and manual expression to stimulate supply. Assessed patient for correct flange size, placement and draw. Patient verbalizes and demonstrates understanding of instructions. Mother is pumping without difficulties or discomfort. Mother has a pump for home use and is comfortable with use. Discussed pump types and mother will contact her insurance for a stimulation pump. Discussed colostrum vs milk supply and mother may not see more than a few drops the first few days, milk should transition in by day 3 and she may see more volume pumped per session. Discussed increasing supplementation as requires to satisfactions. Reviewed paced feeding and suggested to stop when infant is satisfied, as long as is having required output. With increased supplementation infant may not want to feed for 4 hours. Mother will continue to pump on infant feeding schedule and will increase session to 20 minutes if pumping every 4 hours. Mother is feeding as required and waking infant to feed if needed. Infant is feeding without issue, and is currently meeting outcomes for weight, output, jaundice and feeding frequencies. Mother states she feels confident to continue current feeding plan at home. Reviewed transition to breast milk, signs of adequate intake, and engorgement/relief. Instructed to call ICP if intake/output less than required. Reviewed regular medications mother is taking. Information provided per Sarah. Reviewed community resources on the [facility] website and in the Mom/Baby guide. Information on outpatient services provided. Mother has no further questions at this time. Instructed feeding should be initiated three hours from start of last feeding or if feeding cues are noted before until seen by ICP. Mother voiced understanding of information shared.
--- NOTE | 2021-06-13 09:49 | PC.NURSE ---
Patient viewed the discharge video Mother & Baby Care, The First Two Weeks online. Patient was given the opportunity and encouraged to ask questions. Patient verbalized understanding of information shared and has been given the mother/baby guide for home reference.
[2021-06-13] MEDS: MEASLES,MUMPS,RUBELLA VACCINE 0.5 ML VIAL SUB-Q (13:41)
[2021-06-14 12:12] VITALS: BP 130/69; PULSE 112; RESP 18; TEMP 37.4; O2SAT 98
--- NOTE | 2021-06-15 11:56 | PM.OBDSVD ---
DS: Admitting Diagnosis Discharge Date 06/13/21 Admitting Diagnosis OB - DS: Summary OB Procedures : None OB Procedures Intrapartum: OB Procedures: : None Peripartum Data Procedures: Procedures Operation Date: 06/10/21 16:45 Actual Procedure Side Surgeon p Section Ambrocio Lawrence MD Time Spent with Patient Time attestation: Total time spent providing and/or coordinating discharge services: DS: Data Data Completed and Pending Pending studies at discharge: Pending at discharge 06/10/21 17:18 Surgical [PTH] Routine Discharge Plan Discharge Discharging Clinician: Ambrocio Lawrence Patient Disposition: Home, Self-Care Activity: as tolerated Diet: as tolerated Wound Care Instructions: incision open to air Discharge Instructions: Education: Mom and Baby Guide Given to: Mother Follow-Up: Call your delivering provider's office for an appointment to be seen on: Friday 06/15 for staple removal and again in 3 weeks Mom [facility] baby [facility] follow-up appointment. Appointment Date/Time: June 14, 2021 at 11:00 am What to expect at your follow-up visit: Physical Assessment Call [phone] if you are unable to keep your appointment time. BREAST CARE: * Wear a snug supportive bra. * For engorgement discomfort: Breast Feeding: * Apply warm moist washcloths * Express milk as needed to relieve engorgement * Wear loose clothing Bottle Feeding: * May apply ice packs * For sore nipples: * Apply warm moist washcloths before and after nursing * Air dry nipples after pumping * May apply Lansinoh cream to nipples ABDOMINAL INCISION: (if applicable) * Allow incision to air dry * Do NOT use lotions for powders on your incision * When showering, allow soap and water to run over the incision, but do not wash incision EPISIOTOMY/PERINEAL CARE: * Until bleeding stops, use your gia bottle after urinating * Change your pad frequently throughout the day * You may take sitz baths several times a day (fill your bathtub with warm water and soak for 20 minutes.) Do NOT bathe in the water * No tub baths until seen by your physician - You may shower ACTIVITY: * Rest as much as possible. * Do not exercise or lift anything heavier than your baby (such as laundry or other children.) * Avoid stairs or driving as much as possible. * Do not put anything into the vagina. No douching, tampons, or sexual activity until seen by physician. NOTIFY PHYSICIAN IF YOU HAVE ANY QUESTIONS OR IF ANY OF THE FOLLOWING SYMPTOMS OCCUR: * If your incision becomes red, swollen, or more painful than what you have experienced in the hospital. * If your vaginal bleeding becomes foul smelling. * If your vaginal bleeding becomes more heavy than a period or if your bleeding changes from pink to bright red. However, you may pass an occasional walnut-sized clot once or twice for the first week . * If you experience a sharp, shooting pain in you calves. * If you discover a hard, reddened area on your breast or if you experience flu-like symptoms. DIET: * Eat regular, well-balanced meals. * Drink plenty of fluids daily. If or pumping, drink to thirst. Patient Instructions: Antibiotic Form Stand Alone Forms: General Discharge Information Follow-up/Referrals: Ambrocio Lawrence MD [Physician] - 3 Weeks Discharge Medications: New ibuprofen 100 mg/5 mL Suspension 600 mg PO Q6H PRN (Reason: Cramping) Qty: 840 RF: 0 hydrocodone-acetaminophen 7.5-325 mg/15 mL Solution 10 ml PO Q3H MDD 80mL max daily PRN (Reason: Moderate Pain (4-6)) 3 Days Qty: 250 RF: 0 Continued ferrous sulfate 325 mg (65 mg iron) Tablet 325 mg PO DAILY RF: 0 PNV [id number] fumarate-FA [] 28 mg iron- 800 mcg Tablet 1 tablet
== END 2021-06-13 15:56 | disposition home or self-care (01) | DRG 787 ==
LOC: ANHLDR 06-10 17:28 → ANHOB2 06-10 22:04
PROVIDERS: Admitting Provider Obstetrics & Gynecology; PCP Internal Medicine; Visit Provider Obstetrics & Gynecology
PROC: 10D00Z1 Extraction of Products of Conception, Low, Open Approach (ICD-10-PCS; CPT 59514; principal; 2021-06-10 16:45)
DX: O62.1 Secondary uterine inertia (principal); O75.2 Pyrexia during labor, not elsewhere classified; O99.214 Obesity complicating childbirth; E66.01 Morbid (severe) obesity due to excess calories; O76 Abnormality in fetal heart rate and rhythm complicating labor and delivery; O24.429 Gestational diabetes mellitus in childbirth, unspecified control; O42.92 Full-term premature rupture of membranes, unspecified as to length of time between rupture and onset of labor; Z3A.39 39 weeks gestation of pregnancy; Z37.0 Single live birth
CPT/HCPCS: 36415; 59025; 76819; 80053; 80170; 82948; 84112; 84550; 85025; 85027; 86592; 86850; 86900; 86901; 88307; 90710; A9270; J0131; J0290; J0690; J1580; J1885; J2274; J2405; J2590; J7120